=== PATIENT | female | born 1975 | race Caucasian/White ===

== ENCOUNTER 2023-09-08 04:14 | Emergency (ER) | payer OTHER, SELFPAY ==
[2023-09-08 04:18] VITALS: BP 117/85; PULSE 84; RESP 16; TEMP 36.9; O2SAT 97; BMI 26.5
[2023-09-08 04:33] VITALS: O2SAT 97
--- NOTE | 2023-09-08 04:34 | CT_ITS ---
The [address] [address] Patient Name: WENDY BRENNER MRN: [id number] date: 1975 Sex: F Assigned Patient Location: ER Current Patient Location: Accession/Order Number: [id number] Exam Date: 09/08/2023 05:11 Report Date: 09/08/2023 10:53 At the request of: ELIZ MARCELO Procedure: CT head/brain wo con EXAM: CT head/brain wo con 09/08/2023 HISTORY: Headache. COMPARISON STUDY: CT of the sinuses without contrast 11/18/2020. TECHNIQUE: 3 mm sections were obtained through the head without the use of contrast. Coronal and sagittal reconstructed images were obtained. FINDINGS: There is mild mucosal thickening associated with a few of the paranasal sinuses. The mastoid air cells and middle ear cavities are clear. Significant arthritic changes of the temporomandibular articulations bilaterally noted. There is no acute calvarial fracture deformity. The upper parapharyngeal fat planes are grossly intact. No acute intraorbital abnormality is otherwise identified. Intracranially, there is no midline shift, hemorrhage or dominant mass lesion. Harmon to white matter differentiation is intact. Ventricular and cisternal spaces are within normal limits. There is no hemorrhage, midline shift or dominant mass lesion. CT/CT head/brain wo con IMPRESSION: No acute intracranial process. Electronically authenticated by: EMIR DAMICO Date: 09/08/2023 10:53
--- NOTE | 2023-09-08 04:36 | ED_ITS ---
HPI - Ear Problem General Chief complaint: Ear Stated complaint: ear ache Time Seen by Provider: 09/08/23 04:26 Source: patient Mode of arrival: walk-in Limitations: no limitations History of Present Illness HPI Narrative: seen yesterday by her PCP with acute onset of ear pain. Diagnosed bilat ear external canal cellulitis. Prescribed ear drops and cipro. Now presents complaining of increasing pain and headache. Has nausea because of the [place]. No fever or dizziness. Decreased hearing bilat Related Data Home Medications Medication Instructions Recorded Confirmed ciprofloxacin HCl 500 mg tablet 500 mg PO Q12H 09/08/23 09/08/23 [id number] 3.5 4 drp otic (ear) Q8H 09/08/23 09/08/23 mg-10,000 unit/mL-1 % ear drops,susp Allergies Allergy/AdvReac Type Severity Reaction Status Date / Time codeine AdvReac Unknown Verified 09/08/23 04:22 Review of Systems ROS Status of ROS 10 or more systems reviewed and unremarkable except as noted in history and below PFSH PFSH Social History Smoking status: Never smoker Exam Constitutional Vital Signs, click to edit/add: Last Vital Signs Temp 98.4 F 09/08/23 04:18 Pulse 84 09/08/23 04:18 Resp 16 09/08/23 04:18 BP 117/85 09/08/23 04:18 Pulse Ox 97 09/08/23 04:33 O2 Del Method Room Air 09/08/23 04:33 Common normals: average body habitus, oriented x3, healthy appearing, alert and well nourished [facility] [place] Other: bilat ear canals swollen shut. mild swelling left face at TMJ Eye Common normals: PERRL, EOMs intact bilaterally and conjunctivae normal Neck & C-Spine Common normals: full ROM Respiratory Common normals: normal respiratory effort Cardio Common normals: regular rate, regular rhythm, S1 normal heart sound and S2 normal heart sound GI Common normals: Normal to inspection, nondistended, normoactive bowel sounds present Extremity Common normals: normal to inspection and full ROM Neuro Common normals: oriented x3, CN's II-XII intact bilaterally, moves all extremities, no focal motor deficits and no sensory deficits noted Psych Appearance: grossly normal Course Vital Signs Vital signs: Vital Signs Temperature 98.4 F 09/08/23 04:18 Pulse Rate 84 09/08/23 04:18 Respiratory Rate 16 09/08/23 04:18 Blood Pressure 117/85 09/08/23 04:18 Pulse Oximetry 97 09/08/23 04:18 Oxygen Delivery Method Room Air 09/08/23 04:18 Temperature 98.4 F 09/08/23 04:18 Pulse Rate 84 09/08/23 04:18 Respiratory Rate 16 09/08/23 04:18 Blood Pressure 117/85 09/08/23 04:18 Pulse Oximetry 97 09/08/23 04:33 Oxygen Delivery Method Room Air 09/08/23 04:33 Medical Decision Making MDM Narrative Medical decision making narrative: presents with acute onset of bilat ear pain. L>R. Started yesterday. seen by Dr Mora and prescribed Cipro and ear drops. Presents with worsening ear pain and a headache. Also nauseated. Treated with solumedrol and rocephin. Patient is now feeling better. Headache has improved and ear pain has decreased. CT brain pending. will plan to change antibiotic to Augmentin and have her continue her ear drops. Medrol also prescribed for the swelling. Discharge Plan Discharge Chief Complaint: Ear Clinical Impression: Acute ear pain, Otitis externa Patient Disposition: Home, Self-Care Time of Disposition Decision: 06:45 Condition: Good Prescriptions / Home Meds: No Action ciprofloxacin HCl 500 mg tablet 500 mg PO Q12H [id number] 3.5-10,000-1 mg/mL-unit/mL-% drops,suspension 4 drp OTIC (EAR) Q8H Instructions: Earache (ED) Additional Instructions: discontinue Cipro. continue ear drops. follow up with Dr Mora for recheck in 2-3 days Stand Alone Forms: Portal Instructions Referrals: Jose Mora MD [Primary Care Provider] - 1 week Discharge Date/Time: 09/08/23 07:08
[2023-09-08 04:51] LABS: Basophils Percent Auto 0.2 % (0.2-2.0); Eosinophils Percent Auto 0.3 % (0.9-7.0); Hematocrit 39.3 % (36.0-48.0); Hemoglobin 12.6 g/dL (12.0-16.0); Immature Granulocytes Abs Auto 0.03 10^3/uL (0.00-0.03); Immature Granulocytes Pct Auto 0.3 % (0.0-0.5); Lymphocytes Absolute Auto 0.7 10^3/uL (1.2-3.8); Lymphocytes Percent Auto 6.6 % (20.5-60.0); Mean Corpuscular HGB Conc 32.1 g/dL (29.9-35.2); Mean Corpuscular Hemoglobin 28.3 pg (26.7-34.0); Mean Corpuscular Volume 88.3 fL (81.0-99.0); Mean Platelet Volume 10.3 fL (9.5-13.5); Monocytes Absolute Auto 1.3 10^3/uL (0.3-0.8); Monocytes Percent Auto 12.6 % (1.7-12.0); Neutrophils Absolute Auto 8.3 10^3/uL (1.4-6.5); Platelet Count 211 10^3/uL (150-450); Red Blood Count 4.45 10^6/uL (4.20-5.40); Red Cell Distribution Width 13.5 % (11.0-15.0); White Blood Count 10.3 10^3/uL (4.0-11.0)
[2023-09-08 05:01] LABS: Anion Gap 12.8; BUN Creatinine Ratio 14.3; Calcium 8.5 mg/dL (8.5-10.1); Carbon Dioxide 26.8 mmol/L (21.0-32.0); Chloride 101 mmol/L (98-107); Estimated GFR (African America >60 (>=60); Estimated GFR (Non-African Ame >60 (>=60); Glucose 115 mg/dL (74-106); Potassium 3.6 mmol/L (3.5-5.1); Sodium 137 mmol/L (136-145)
[2023-09-08] MEDS: CEFTRIAXONE 1,000 MG in 0.9 % SODIUM CHLORIDE 50 ML 100 MG IV (05:15)
[2023-09-08] MEDS: 0.9 % SODIUM CHLORIDE 1,000 ML 999 ML IV (05:16)
[2023-09-08] MEDS: ONDANSETRON PF 4 MG/2 ML VIAL IV (05:16)
[2023-09-08 06:18] VITALS: BP 113/81; PULSE 104; RESP 16; O2SAT 97
[2023-09-08] MEDS: KETOROLAC TROMETHAMINE 30 MG/ML VIAL IVP (06:55)
== END 2023-09-08 07:08 | disposition home or self-care (01) ==
LOC: ER 04:23
PROVIDERS: Emergency Provider Internal Medicine; PCP Family Medicine
DX: H60.93 Unspecified otitis externa, bilateral (principal); H92.03 Otalgia, bilateral; Z79.899 Other long term (current) drug therapy
CPT/HCPCS: 36415; 70450; 80048; 85025; 99285